=== PATIENT | female | born 1980 | race African-American/Black ===

== ENCOUNTER 2021-05-17 15:31 | Emergency (ER) | payer MEDICAID ==
[~2021-05-17] VITALS: Ht 175.3 cm; Wt 69.0 kg
[2021-05-17 15:42] VITALS: BP 116/81
[2021-05-17] MEDS ORDERED: IBUPROFEN 600MG TABLET PO ONE (20:15)
== END 2021-05-18 00:31 | disposition left against medical advice (07) ==
LOC: ER 15:31
DX: R07.9 Chest pain, unspecified (principal); R05.9 Cough, unspecified; M79.10 Myalgia, unspecified site; Z20.822 Contact with and (suspected) exposure to COVID-19
CPT/HCPCS: 71045; 93005; 99283

== ENCOUNTER 2022-05-17 03:23 | Emergency (ER) | payer MEDICAID ==
[~2022-05-17] VITALS: Ht 175.3 cm; Wt 92.3 kg
[2022-05-17 06:00] VITALS: BP 126/83
[2022-05-17 06:13] LABS: CLARITY URINE CLOUDY (CLEAR); COLOR URINE RED (YELLOW); KETONES URINE NEGATIVE (NEGATIVE); LEUKOCYTE ESTERASE URINE 3+ (NEGATIVE); NITRITE URINE POSITIVE (NEGATIVE); OCCULT BLOOD URINE 3+ (NEGATIVE); PH URINE 5.5 (4.5-8.0); PROTEIN URINE 3+ (NEGATIVE); SPECIFIC GRAVITY URINE 1.023 (1.005-1.030)
[2022-05-17] MEDS ORDERED: FLUC150T46 MT (06:50)
[2022-05-17] MEDS ORDERED: CEPH500T MT (06:50)
== END 2022-05-17 06:59 | disposition home or self-care (01) ==
LOC: ER 03:32
DX: N39.0 Urinary tract infection, site not specified (principal); B96.89 Other specified bacterial agents as the cause of diseases classified elsewhere; Z98.51 Tubal ligation status
CPT/HCPCS: 81003; 81025; 87077; 87186; 99283